=== PATIENT | male | born 1970 | race Caucasian/White ===

== ENCOUNTER → 2023-09-18 | Outpatient (CLI) | payer BC | LOC: LAB 14:44 | DX: Z12.5 Encounter for screening for malignant neoplasm of prostate (principal); Z11.59 Encounter for screening for other viral diseases; Z13.1 Encounter for screening for diabetes mellitus; Z13.220 Encounter for screening for lipoid disorders ==

== ENCOUNTER → 2023-09-19 | Outpatient (CLI) | payer BC | LOC: LAB 08:27 | DX: E78.2 Mixed hyperlipidemia (principal) ==

== ENCOUNTER → 2023-12-22 | Outpatient (CLI) | payer BC | LOC: RAD 11:05 | DX: M25.551 Pain in right hip (principal); M25.552 Pain in left hip ==

== ENCOUNTER 2024-05-16 14:03 | Outpatient (RCR) | payer BC | END 2024-05-20 | disposition home or self-care (01) | LOC: PT | DX: M75.02 Adhesive capsulitis of left shoulder (principal) ==

== ENCOUNTER 2024-05-23 08:01 | Outpatient (RCR) | payer BC | END 2024-06-19 13:18 | disposition home or self-care (01) | LOC: PT 08:01 | DX: M75.02 Adhesive capsulitis of left shoulder (principal) ==

== ENCOUNTER → 2024-05-27 | Outpatient (CLI) | payer BC ==
[2024-05-28 11:01] LABS: ANA SCREEN with REFLEX Negative (Negative); SJOGRENS SSA 6 U/mL (0-99); SJOGRENS SSB 4 U/mL (0-99)
[2024-05-29 06:37] LABS: BETA-2GPI IGG AABS <9 (0-20); BETA-2GPI IGM AABS <9 (0-32)
[2024-05-30 05:37] LABS: HOMOCYSTEINE SERUM OR PLASMA 94.8 umol/L (0.0-14.5)
[2024-05-30 21:35] LABS: C-ANCA 13 U/mL (0-99)
[2024-05-31 05:38] LABS: BETA GLOBULINS (PEP) 1.3 g/dL (0.7-1.3)
[2024-05-31 05:38] LABS: URINE T PROTEIN, RANDOM (PEP) 11.6 mg/dL (())
== END ==
LOC: LAB 09:27
PROVIDERS: Psychiatry & Neurology Neurology
DX: R41.3 Other amnesia (principal); R90.89 Other abnormal findings on diagnostic imaging of central nervous system; M54.2 Cervicalgia

== ENCOUNTER → 2024-05-28 | Outpatient (CLI) | payer BC ==
[~2024-05-28] MED LIST: Gadoterate 20 ML VIAL IV ONE
== END ==
LOC: RAD 09:28
DX: M50.323 Other cervical disc degeneration at C6-C7 level (principal); M47.812 Spondylosis without myelopathy or radiculopathy, cervical region; M48.02 Spinal stenosis, cervical region; M25.78 Osteophyte, vertebrae; M89.38 Hypertrophy of bone, other site; R41.3 Other amnesia
CPT/HCPCS: A9575

== ENCOUNTER → 2024-06-17 | Outpatient (CLI) | payer BC | LOC: RAD 12:15 | DX: M25.561 Pain in right knee (principal); M25.562 Pain in left knee ==

== ENCOUNTER → 2024-11-06 | Outpatient (CLI) | payer BC ==
[2024-11-06 14:50] LABS: EOS # 0.05 K/mm3 (0.04-0.40); EOS % 0.8 % (0.0-4.0); HEMATOCRIT 48.5 % (42.0-52.0); HEMOGLOBIN 15.4 g/dL (13.5-18.0); MEAN CELL VOLUME 98 fl (78-100); MEAN CORPUSCULAR HEMOGLOBIN 31 pg (27-31); MEAN CORPUSCULAR HGB CONC 32 g/dL (33-37); MEAN PLATELET VOLUME 11.2 fl (7.4-10.4); MONO # 0.41 K/mm3 (0.20-0.80); NEU # 3.65 K/mm3 (1.40-6.50); PLATELET COUNT 205 K/mm3 (130-400); RED BLOOD COUNT 4.93 M/mm3 (4.20-5.60); RED CELL DISTRIBUTION WIDTH 15.6 % (11.5-14.5); WHITE BLOOD COUNT 5.9 K/mm3 (4.8-10.8)
[2024-11-06 14:54] LABS: ALBUMIN 4.4 g/dL (3.5-5.0)
[2024-11-06 14:56] LABS: TOTAL PROTEIN 8.3 g/dL (6.4-8.3)
[2024-11-06 14:58] LABS: TOTAL BILIRUBIN 0.6 mg/dL (0.2-1.2)
[2024-11-06 16:03] LABS: PROTHROMBIN TIME 34.1 SECONDS (9.0-12.0)
[2024-11-06 23:27] LABS: CREATININE OTHER SOURCE 81 mg/dL (47-110)
== END ==
LOC: LAB 14:33
PROVIDERS: Family Medicine
DX: E78.2 Mixed hyperlipidemia (principal); D68.59 Other primary thrombophilia; D52.9 Folate deficiency anemia, unspecified; R73.03 Prediabetes